=== PATIENT | female | born 1990 | race Caucasian/White ===

== ENCOUNTER 2022-09-19 15:22 | Outpatient (REF) | payer BC, SELFPAY ==
--- NOTE | ~2022-09-19 | CT_ITS ---
EXAMINATION: CT SINUS WITHOUT CONTRAST CLINICAL INFORMATION: Acute sinusitis. Sinonasal polyp. COMPARISON: None TECHNIQUE: Axial 2 mm thin and reformatted 2 mm thin sagittal and coronal images of sinuses were obtained. This CT examination was performed using dose optimization techniques as appropriate, variously including the following: *Automated exposure control *Adjustment of mA and/or kV according to patient size (this includes techniques or standardized protocols for targeted exams where dose is matched to indication/reason for exam; i.e. extremities or head) *Use of iterative reconstruction technique DLP: 74 mGy-cm FINDINGS: There is diffuse mucoperiosteal thickening involving bilateral frontal, ethmoid, maxillary and sphenoid sinuses. The bony sinus jauregui are intact. There is previous functional endoscopic sinus surgery. There is mucoperiosteal thickening involving the middle and the superior nasal meatus. There is obstruction of drainage sinus pathways from mucosal thickening. There is complete obliteration of nasal cavity airway in the proximal and mid cavity from mucosal thickening. Visualized bony sinus jauregui, nasal cavity and maxillofacial bones are normal. Visualized bilateral optic globe, optic nerve and the periorbital soft tissues are normal. The mastoid air cells are well aerated. CT/CT sinus wo IV con IMPRESSION: 1. Chronic sinonasal polyposis. 2. There is previous functional endoscopic sinus surgery. 3. There is complete obliteration of mid nasal cavity airway from mucosal thickening. 4. There is obliteration of sinus drainage pathways.
== END 2022-09-19 15:23 | disposition home or self-care (01) ==
LOC: HO.CT 15:22
PROVIDERS: PCP Family Medicine; Visit Provider Otolaryngology
DX: J33.0 Polyp of nasal cavity (principal); J01.90 Acute sinusitis, unspecified
CPT/HCPCS: 70486